=== PATIENT | male | born 1940 | race Caucasian/White ===

== ENCOUNTER 2019-07-02 10:23 | Emergency (ER) | payer OTHER, SELFPAY ==
[2019-07-02] VITALS (29 sets, daily range): BP systolic 160–194; BP diastolic 78–143; PULSE 64–81; RESP 10–24; TEMP 36.7–36.8; O2SAT 91–99
--- NOTE | 2019-07-02 10:45 | ED.GENADUL_ITS ---
Discharge Plan Disposition Patient Disposition: AGAINST MEDICAL ADVICE Discharge Details Chief Complaint: Chest Pain Clinical Impression: Chest pain, Opacity of lung on imaging study, HTN (hypertension) Primary Care Provider: Primitivo Overton ED Provider: Johnny Bravo Home Meds and New Rx's Prescriptions: New doxycycline hyclate 100 mg tablet 100 mg PO BID Qty: 13 RF: 0 No Action valacyclovir 500 mg Tablet 500 mg PO DAILY RF: 0 clonidine HCl 0.1 mg Tablet 0.1 mg PO BID RF: 0 tamsulosin 0.4 mg Capsule 0.4 mg PO DAILY RF: 0 lisinopril 10 mg Tablet 10 mg PO DAILY RF: 0 gabapentin 300 mg Capsule 300 mg PO BID RF: 0 omeprazole 20 mg Capsule,Delayed Release(Dr/Ec) 20 mg PO DAILY RF: 0 hydroxyzine HCl 25 mg Tablet 25 mg PO TID PRNRF: 0 bupropion HCl 300 mg Tablet Extended Release 24 Hr 300 mg PO DAILY RF: 0 Discharge Instructions Instructions: Against Medical Advice (ED) Additional Instructions: You were seen today for chest pain. I am concerned that you may have had a heart attack. Diagnostic work-up in the emergency department has been nondiagnostic so far. The recommendation is that you be admitted to the hospital for further diagnostic testing to further evaluate for heart attack. You are refusing to be admitted and refusing additional diagnostic testing at this time. You wish to leave AGAINST MEDICAL ADVICE. You understand that you may return anytime for further work-up and treatment as recommended. You further acknowledge that you may have life-threatening or lifestyle modifying disease that will go undiagnosed and untreated and that your condition may worsen. Please call your doctor soon as possible to arrange timely follow-up. Referrals: Primitivo Overton [Primary Care Provider] - Discharge Data Discharge Date/Time-TO BE ENTERED AT DEPARTURE: 07/02/19 13:07 Medical Decision Making 10:45 --78-year-old male with history of hypertension, COPD, renal cancer status post partial nephrectomy and resection, former smoker, here with chest pain intermittent over the past 3 days and worse this morning with associated shortness of breath and dyspnea on exertion. Concern for ACS. Screening ECG was reviewed and interpreted by me: Sinus rhythm 64 bpm, right bundle branch block is present, left axis deviation noted, no STEMI. Plan to check troponin. Consider pulmonary embolism. Patient is not tachycardic and is saturating well with no respiratory distress. I will check a d-dimer. --Chest x-ray interpreted by radiology: Mild opacity in the right base may represent atelectasis or pneumonia. I obtained outside hospital records chest x-ray from [facility] dated 06/07/2019 that was interpreted as no pulmonary nodules or masses. Plan will be to treat with antibiotic for possible early pneumonia. Labs reviewed and initial troponin negative. D-dimer negative. Plan will be to hospitalize for further diagnostic work-up and treatment given risk factors for ACS. Patient refusing admission. Patient refusing additional diagnostics at this time including delta troponin. I had a discussion with Mr. Noel about my diagnostic/treatment plan. He declines plan and wishes to leave against medical advise. I reiterated my concerns to the him and explained the risks of leaving prior to completion of workup and treatment. I specifically emphasized the possibility of life- threatening or lifestyle modifying disease that would not be appropriately treated if they leave. He verbalized understanding of my concerns and the potential for life threatening or lifestyle modifying disease. He has capacity to make informed decision. I again explained my concerns and urged him to stay for treatment as outlined. Patient continued to refuse. I then discussed potential less ideal alternatives to diagnostic/treatment plan as outlines and patient refused. I recommended that he follow-up with primary care physician CAT or return to the Emergency Department at any time for further treatment. Plan will be to start doxycycline to cover him for possible early pneumonia. HPI General Mode of arrival: ambulatory . Date/Time Provider Initiated Documentation: 07/02/19 10:29 . Limitations to Documentation: no limitations . Information obtained by: patient . HPI Narrative: 78-year-old male with history of hypertension, former smoker, family history of coronary artery disease, here with chief complaint of chest pain. Patient notes he has had chest pain described as dull over the past 3 days. Pain is been intermittent since onset. Patient states he has 5 to 10-minute episodes of pain approximately every 2 hours over the past 3 days. This morning pain was worse. He had associated shortness of breath. Patient does note dyspnea on exertion. Currently he has no chest pain and no shortness of breath while lying in bed. Patient denies abdominal pain, nausea or vomiting. No recent long distance travel or surgery. Patient was seen in urgent care prior to arrival today and sent here for evaluation. Related Data Home Medications Medication Instructions Recorded Confirmed bupropion HCl 300 mg PO DAILY 07/02/19 07/02/19 clonidine HCl 0.1 mg PO BID 07/02/19 07/02/19 doxycycline hyclate 100 mg PO BID #13 tab 07/02/19 gabapentin 300 mg PO BID 07/02/19 07/02/19 hydroxyzine HCl 25 mg PO TID PRN 07/02/19 07/02/19 lisinopril 10 mg PO DAILY 07/02/19 07/02/19 omeprazole 20 mg PO DAILY 07/02/19 07/02/19 tamsulosin 0.4 mg PO DAILY 07/02/19 07/02/19 valacyclovir 500 mg PO DAILY 07/02/19 07/02/19 Previous Rx's Medication Instructions Recorded doxycycline hyclate 100 mg PO BID #13 tab 07/02/19 Allergies Allergy/AdvReac Type Severity Reaction Status Date / Time codeine AdvReac Unverified 07/02/19 10:36 General Stated Complaint: Chest Pain MING: 2 Review of Systems All systems reviewed & are unremarkable except as noted in HPI and below Constitutional Constitutional: Denies fever(s) Cardiovascular Cardiovascular: Reports as per HPI, Reports chest pain and Denies leg edema [facility] Medical History (Updated 07/02/19 @ 12:57 by Johnny Bravo MD) HTN (hypertension) (Chronic) Renal cancer (Chronic) Social History Smoking/Tobacco Use Status: Never Alcohol Intake: never Substance use type: does not use Do you feel safe at home: Yes Do you feel safe in your relationship?: Yes Exam Const General: cooperative and no acute distress [facility] Mouth: moist mucous membranes Eyes Conjunctivae: normal conjunctivae Sclera: normal sclerae Neck Neck: trachea midline and supple Resp Auscultation: clear to auscultation bilaterally, no rales, no rhonchi and no whe ezes Cardio Jugular venous pressure: no JVD Rate: regular rate and not tachycardic Rhythm: regular rhythm GI Palpation: soft, not firm, no guarding, no masses, not rigid and nontender Skin General skin exam: no rashes or lesions noted Neuro General: alert, awake, oriented x3 and tone normal Extrem General: no calf tenderness and no edema Psych Appearance: grossly normal Mental Status: mental status grossly normal Course Vital Signs Vital signs: Vital Signs Temperature 36.8 C 07/02/19 10:34 Pulse 69 07/02/19 10:34 Respiratory Rate 16 07/02/19 10:34 Blood Pressure 181/78 H 07/02/19 10:34 Pulse Oximetry 98 07/02/19 10:34 Temperature 36.8 C 07/02/19 10:34 Temperature Source Skin 07/02/19 10:34 Pulse 69 07/02/19 10:34 Respiratory Rate 16 07/02/19 10:34 Blood Pressure 181/78 H 07/02/19 10:34 Blood Pressure Position Sitting 07/02/19 10:34 Pulse Oximetry 98 07/02/19 10:34 Oxygen Delivery Method Room Air 07/02/19 10:34 Oxygen Flow Rate 0 07/02/19 10:34 Pain Level 0 07/02/19 10:34
[2019-07-02 11:04] LABS: Abs Immature Grans 0.02 k/cumm (0.0-0.09); Absolute Basophil Count 0.05 k/cumm (0.0-0.2); Absolute Eosinophil Count 0.25 k/cumm (0.0-0.7); Absolute Lymphocyte Count 1.49 k/cumm (1.2-3.4); Absolute Neutrophil Count 5.08 k/cumm (1.2-6.7); Basophils % 0.7; Eosinophils % 3.4; HCT 47.9 % (40.0-50.0); HGB 16.5 g/dL (13.5-17.5); Immature Grans % 0.3 %; Lymphocytes % 20.2; Mean Corp. HGB Concentration 34.4 g/dL (32.0-36.0); Mean Corpuscular Hemoglobin 32.6 pg (27.0-33.0); Mean Corpuscular Volume 94.7 fL (80-95); Mean Platelet Volume 10.5 fL (8.0-11.0); Monocytes % 6.8; Neutrophils % 68.6; Platelet Count 182 x1000/uL (130-400); RBC 5.06 m/cumm (4.50-6.00); RBC Distribution Width 12.9 % (11.8-14.1); White Blood Cell Count 7.39 k/cumm (4.4-10.8)
[2019-07-02 11:19] LABS: Albumin 4.2 g/dL (3.4-5.0); Alkaline Phosphatase 77 U/L (46-116); Anion Gap 8.6 mmol/L (3-11); BUN 21 mg/dL (7-18); Bilirubin, Total 0.6 mg/dL (0.2-1.0); CO2 27.4 mmol/L (21.0-32.0); CREATININE 1.42 mg/dL (0.70-1.30); Calcium 9.3 mg/dL (8.5-10.1); Chloride 104 mmol/L (98-107); Estimated GFR 48.47 (mL/min/1.73m2); Glucose 141 mg/dL (74-106); Potassium 4.9 mmol/L (3.5-5.1); Sodium 140 mmol/L (136-145)
[2019-07-02 11:24] LABS: Troponin I < 0.05 ng/Ml (<0.06)
[2019-07-02 11:25] LABS: NT-proBNP 18 pg/mL (<300)
[2019-07-02 11:39] LABS: D-Dimer 348 ng/mlFEU (<500)
--- NOTE | 2019-07-02 11:40 | DI.RAD_ITS ---
EXAM: XR CHEST 2V PA LATERAL INDICATION: chest pain. COMPARISON: No exams were available for comparison TECHNIQUE: 2D digital imaging was performed. FINDINGS: The heart size and pulmonary vasculature are within normal limits. There is an infiltrate in the rig ht lung base. The lungs are otherwise clear. No effusions or pneumothoraces are identified. Age re lated degenerative changes are seen in the spine. IMPRESSION: Right basilar infiltrate which may represent atelectasis or pneumonia.
[2019-07-02 12:19] LABS: ALT 93 U/L (16-63); AST 46 U/L (15-37)
--- NOTE | 2019-07-02 12:19 | DI.VRAD_ITS ---
PROCEDURE INFORMATION: Exam: XR Chest, 2 Views Exam date and time: 07/02/2019 11:42 AM Age: 78 years old Clinical indication: Other: Chest pain TECHNIQUE: Imaging protocol: XR of the chest Views: 2 views. COMPARISON: No relevant prior studies available. FINDINGS: Lungs: Mild opacity in the right base may represent atelectasis or pneumonia. Pleural space: Unremarkable. No pleural effusion. No pneumothorax. Heart/Mediastinum: Mild cardiomegaly Bones/joints: Degenerative changes in the thoracic spine IMPRESSION: Mild opacity in the right base may represent atelectasis or pneumonia. Dictated and Authenticated by: Bravo Breen MD. Ordering:CATHY Turner MD
== END 2019-07-02 13:07 | disposition left against medical advice (07) ==
PROVIDERS: Emergency Provider Student in an Organized Health Care Education/Training Program; PCP Internal Medicine Sleep Medicine
DX: R07.9 Chest pain, unspecified (principal); R06.02 Shortness of breath; I10 Essential (primary) hypertension; R91.8 Other nonspecific abnormal finding of lung field; J44.9 Chronic obstructive pulmonary disease, unspecified; Z87.891 Personal history of nicotine dependence; Z53.29 Procedure and treatment not carried out because of patient's decision for other reasons
CPT/HCPCS: 36415; 80053; 87040; 93005; 99285; 71046; 83880; 84484; 85025; 85379; 93010